=== PATIENT | male | born 1985 | race Hispanic/Latino ===

== ENCOUNTER 2017-12-04 20:20 | Emergency (ER) | payer SELFPAY ==
--- NOTE | 2017-12-04 21:13 | RAD REPORT ---
EXAM DESCRIPTION: CT - Stone Protocol - 12/04/2017 8:54 pm CLINICAL HISTORY: Abdominal pain, hematuria COMPARISON: None. TECHNIQUE: Axial 5 mm thick images were obtained without oral or IV contrast. The [id number] span s the entirety of the system including uppermost abdomen and lung bases. All CT scans are performed using dose optimization technique as appropriate and may include automated exposure control or mA/KV adjustment according to patient size. FINDINGS: No hydronephrosis is present. There is a very minimal hyperdensity in the distal left uret er several cm from the UVJ. This is a potential 1- 2 mm calcification. No other evidence for obstruct ing or nonobstructing calculi. No suspicious renal masses. Isodense masses and pyelonephritis are not excluded on a stone protocol CT scan. Partially filled urinary bladder shows no suspicious findings. Liver shows diffuse fatty infiltration with no focal liver lesion. Liver size is prominent. No spleno megaly. Accessory splenic nodules present. No acute pancreatic process. No gallbladder or biliary diaz e abnormality identified. No significant adrenal finding. No suspicious bowel findings. No appendicitis or other acute GI finding. No hernia, mass or bulky lymphadenopathy noted. No free air, free fluid or inflammatory stranding. No significant bony abnormality. IMPRESSION: No hydronephrosis present. Patient has a faint hyperdensity in the distal left ureter a few cm from the UVJ. This is potentially a 1-2 mm stone. Correlation is the within the left flank cari n symptoms. No other acute or significant finding. Isodense masses and pyelonephritis are not excluded on stone protocol technique. Prominent fatty infiltration within an enlarged liver. No focal liver lesion.
[2017-12-04 21:34] LABS: Urine Blood NEGATIVE (NEG); Urine Glucose NEGATIVE (NEG); Urine Protein TRACE (NEG); Urine Specific Gravity 1.025 (1.005-1.030)
[2017-12-04 21:39] LABS: Urine Bacteria NONE SEEN /HPF (NONE SEEN); Urine Culture Reflex Order NOT NEEDED; Urine RBC NONE SEEN /HPF (NONE SEEN)
[2017-12-04] MEDS ORDERED: KETOROLAC 30 MG/ML INJ ONE (21:46)
--- NOTE | 2017-12-04 22:11 | RAD REPORT ---
EXAM DESCRIPTION: US - Scrotum Testicles - 12/04/2017 10:03 pm CLINICAL HISTORY: Scrotal pain, testicular pain COMPARISON: None. FINDINGS: Bilateral testicular tissue is homogeneous. No focal testicular lesions seen. Doppler eval uation shows a normal, symmetric blood flow pattern. No epididymal enlargement or hyperemia. No herni a, mass or other extratesticular abnormality. IMPRESSION: Unremarkable scrotal ultrasound.
--- NOTE | 2017-12-04 22:16 | ER ---
Nurse's Notes [facility] Name: Kristain Razo Age: 32 yrs Sex: Male : 1985 Arrival Date: 12/04/2017 Time: 20:21 Bed 28 Private MD: Diagnosis: Kidney stone Presentation: 12/04 20:39 Presenting complaint: Patient states: lower right abd pain X2 days. pt stated he has ak1 had hematuria today. Transition of care: patient was not received from another setting of care. Onset of symptoms is unknown. Risk Assessment: Do you want to hurt yourself or someone else? Patient reports no desire to harm self or others. Initial Sepsis Screen: Does the patient meet any 2 criteria? No. Patient's initial sepsis screen is negative. Does the patient have a suspected source of infection? No. Patient's initial sepsis screen is negative. Care prior to arrival: None. 20:39 Method Of Arrival: Ambulatory ak1 20:39 Acuity: KWAKU 3 ak1 Triage Assessment: 20:40 General: Appears uncomfortable, Behavior is calm, cooperative. Pain: Complains of pain ak1 in right lower quadrant. Historical: - Allergies: 20:40 No Known Allergies; ak1 - Home Meds: 20:40 None [Active]; ak1 - PMHx: 20:40 None; ak1 - PSHx: 20:40 Hernia repair; ak1 - Immunization history:: Adult Immunizations unknown. - Social history:: Smoking status: Patient/guardian denies using tobacco. - Ebola Screening: : No symptoms or risks identified at this time. Screenin:41 Abuse screen: Denies threats or abuse. Denies injuries from another. Nutritional ak1 screening: No deficits noted. Tuberculosis screening: No symptoms or risk factors identified. Fall Risk None identified. Assessment: 22:31 General: Appears in no apparent distress. uncomfortable, Behavior is calm, cooperative, aj appropriate for age. Pain: Complains of pain in right lower quadrant. Neuro: Level of Consciousness is awake, alert, obeys commands, Oriented to person, place, time, situation. Respiratory: Airway is patent Respiratory effort is even, unlabored, Respiratory pattern is regular, symmetrical. GI: Abdomen is flat, Bowel sounds present X 4 quads. Abd is soft and non tender X 4 quads. Derm: Skin is intact, is healthy with good turgor, Skin is pink, warm \T\ dry. normal. Vital Signs: 20:40 BP 144 / 93; Pulse 62; Resp 18; Temp 98.3; Pulse Ox 99% on R/A; Weight 122.47 kg (R); ak1 Height 6 ft. 4 in. (193.04 cm) (R); Pain 7/10; 22:49 BP 132 / 92; Pulse 54; Resp 19; Pulse Ox 95% on R/A; aj 20:40 Body Mass Index 32.87 (122.47 kg, 193.04 cm) ak1 ED Course: 20:21 Patient arrived in ED. as 20:40 Triage completed. ak1 20:40 Arm band placed on Patient placed in an exam room, on a stretcher, Patient notified of ak1 wait time. 20:43 Chioma Bolivar [facility]-C [facility]. snw 20:43 Homer Bauer MD is Attending Physician. snw 20:[address] [facility] 20:47 Ina Del Real, RN is Primary Nurse. aj 20:55 CT Stone Protocol In Process Unspecified. EDMS 20:58 CT completed. Patient tolerated procedure well. Patient moved back from CT. eh 21:43 Patient taken to ultrasound. sil 22:03 US Scrotum Testicles In Process Unspecified. EDMS 22:48 No provider procedures requiring assistance completed. Patient did not have IV access aj during this emergency room visit. 22:49 Patient has correct armband on for positive identification. aj Administered Medications: 21:42 Drug: TORadol 60 mg Route: IM; Site: left gluteus; aj 22:31 Follow up: Response: No change in condition aj 22:30 Drug: fentaNYL (PF) 50 mcg Route: IM; Site: left deltoid; aj 22:48 Follow up: Response: Pain is decreased aj Outcome: 22:16 Discharge ordered by . snw 22:48 Discharged to home ambulatory. aj 22:48 Condition: good 22:48 Discharge instructions given to patient, Instructed on discharge instructions, follow up and referral plans. medication usage, Demonstrated understanding of instructions, follow-up care, medications, Prescriptions given X 1. 22:49 Patient left the ED. aj Signatures: Dispatcher [employer] EDMA Ina Del Real, RN RN Chioma Mayorga, AUTOMATIC FOLDER SEAMER-C AUTOMATIC FOLDER SEAMER-Csnw Tavo Mobley Amelia as Woodley, Cecelia cw1 Tali Peck, MEGHNA RN ak1 Fidencio Santoro jd
--- NOTE | 2017-12-04 22:17 | EDPHYS ---
Physician Documentation [facility] Name: Kristian Razo Age: 32 yrs Sex: Male : 1985 Arrival Date: 12/04/2017 Time: 20:21 Bed 28 Private MD: ED Physician Homer Bauer HPI: 12/04 22:38 This 32 yrs old Male presents to ER via Ambulatory with complaints of snw Abdominal Pain. 22:38 The patient presents with abdominal pain right lower quadrant. Onset: The snw symptoms/episode began/occurred suddenly, this morning. The symptoms radiate to the right flank, and then down from flank to lower right quad with pain radiating to testicles. Associated signs and symptoms: Pertinent positives: hematuria. The symptoms are described as sharp. Severity of pain: At its worst the pain was severe in the emergency department the pain is unchanged. The patient has not experienced similar symptoms in the past. It is unknown whether or not the patient has recently seen a physician. no fever. Historical: - Allergies: 20:40 No Known Allergies; ak1 - Home Meds: 20:40 None [Active]; ak1 - PMHx: 20:40 None; ak1 - PSHx: 20:40 Hernia repair; ak1 - Immunization history:: Adult Immunizations unknown. - Social history:: Smoking status: Patient/guardian denies using tobacco. - Ebola Screening: : No symptoms or risks identified at this time. ROS: 22:36 Constitutional: Negative for fever, chills, and weight loss, Eyes: Negative for injury, snw pain, redness, and discharge, ENT: Negative for injury, pain, and discharge, Neck: Negative for injury, pain, and swelling, Cardiovascular: Negative for chest pain, palpitations, and edema, Respiratory: Negative for shortness of breath, cough, wheezing, and pleuritic chest pain, Back: Negative for injury and pain, : Negative for injury, bleeding, discharge, and swelling, MS/Extremity: Negative for injury and deformity, Skin: Negative for injury, rash, and discoloration, Neuro: Negative for headache, weakness, numbness, tingling, and seizure. 22:36 Abdomen/GI: Positive for abdominal pain. Exam: 22:36 Constitutional: This is a well developed, well nourished patient who is awake, alert, snw and in no acute distress. Head/Face: Normocephalic, atraumatic. Eyes: Pupils equal round and reactive to light, extra-ocular motions intact. Lids and lashes normal. Conjunctiva and sclera are non-icteric and not injected. Cornea within normal limits. Periorbital areas with no swelling, redness, or edema. ENT: Nares patent. No nasal discharge, no septal abnormalities noted. Tympanic membranes are normal and external auditory canals are clear. Oropharynx with no redness, swelling, or masses, exudates, or evidence of obstruction, uvula midline. Mucous membranes moist. Neck: Trachea midline, no thyromegaly or masses palpated, and no cervical lymphadenopathy. Supple, full range of motion without nuchal rigidity, or vertebral point tenderness. No Meningismus. Chest/axilla: Normal chest wall appearance and motion. Nontender with no deformity. No lesions are appreciated. Cardiovascular: Regular rate and rhythm with a normal S1 and S2. No gallops, murmurs, or rubs. Normal PMI, no JVD. No pulse deficits. Respiratory: Lungs have equal breath sounds bilaterally, clear to auscultation and percussion. No rales, rhonchi or wheezes noted. No increased work of breathing, no retractions or nasal flaring. Back: No spinal tenderness. No costovertebral tenderness. Full range of motion. Skin: Warm, dry with normal turgor. Normal color with no rashes, no lesions, and no evidence of cellulitis. MS/ Extremity: Pulses equal, no cyanosis. Neurovascular intact. Full, normal range of motion. Neuro: Awake and alert, GCS 15, oriented to person, place, time, and situation. Cranial nerves II-XII grossly intact. Motor strength 5/5 in all extremities. Sensory grossly intact. Cerebellar exam normal. Normal gait. Psych: Awake, alert, with orientation to person, place and time. Behavior, mood, and affect are within normal limits. 22:36 Abdomen/GI: Inspection: abdomen appears normal, Bowel sounds: normal, Palpation: moderate abdominal tenderness, in the right lower quadrant. Vital Signs: 20:40 BP 144 / 93; Pulse 62; Resp 18; Temp 98.3; Pulse Ox 99% on R/A; Weight 122.47 kg (R); ak1 Height 6 ft. 4 in. (193.04 cm) (R); Pain 7/10; 22:49 BP 132 / 92; Pulse 54; Resp 19; Pulse Ox 95% on R/A; aj 20:40 Body Mass Index 32.87 (122.47 kg, 193.04 cm) ak1 MDM: 20:43 Patient medically screened. snw 22:37 Data reviewed: vital signs, nurses notes. Data interpreted: Pulse oximetry: on room air snw is 99 %. Interpretation: normal. Counseling: I had a detailed discussion with the patient and/or guardian regarding: the historical points, exam findings, and any diagnostic results supporting the discharge/admit diagnosis, the presence of at least one elevated blood pressure reading (>120/80) during this emergency department visit, lab results, radiology results, the need for outpatient follow up, to return to the emergency department if symptoms worsen or persist or if there are any questions or concerns that arise at home. Special discussion: Based on the patient's Hx, exam, and Dx evaluation, there is no indication for emergent surgery or inpatient Tx. It is understood by the patient/guardian that if the Sx's persist or worsen they need to return immediately for re-evaluation. I have referred the patient to see his PCP for further evaluation of high blood pressure. Based on the history and exam findings, there is no indication for further emergent testing or inpatient evaluation. 12/04 20:44 Order name: Urine Culture snw 12/04 20:44 Order name: Urine Microscopic Only; Complete Time: 21:47 snw 12/04 20:44 Order name: CT Stone Protocol; Complete Time: 21:28 snw 12/04 21:15 Order name: Urine Dipstick--Ancillary (enter results); Complete Time: 21:47 ms 12/04 21:27 Order name: US Scrotum Testicles; Complete Time: 22:13 aj 12/04 20:44 Order name: Urine Dipstick-Ancillary (obtain specimen); Complete Time: 21:35 snw Administered Medications: 21:42 Drug: TORadol 60 mg Route: IM; Site: left gluteus; aj 22:31 Follow up: Response: No change in condition aj 22:30 Drug: fentaNYL (PF) 50 mcg Route: IM; Site: left deltoid; aj 22:48 Follow up: Response: Pain is decreased aj Disposition: 10/29/18 22:16 Discharged to Home. Impression: Kidney stone. - Condition is Stable. - Discharge Instructions: Hypertension, Kidney Stones, Dietary Guidelines to Help Prevent Kidney Stones. - Prescriptions for Diclofenac Sodium 75 mg Oral Tablet Sustained Release - take 1 tablet by ORAL route 2 times per day; 30 tablet. - Work release form, Medication Reconciliation Form, Thank You Letter, Antibiotic Education, Prescription Opioid Use form. - Follow up: Private Physician; When: 2 - 3 days; Reason: Recheck today's complaints, Continuance of care, Re-evaluation by your physician. Follow up: Emergency Department; When: As needed; Reason: Worsening of condition. Signatures: Dispatcher [employer] EDIna Peña, RN RN Chioma Mayorga, SAILAJA-C PULMONARY SPECIALIST-Tali Massey RN RN ak1 Corrections: (The following items were deleted from the chart) 22:49 22:16 12/04/2017 22:16 Discharged to Home. Impression: Kidney stone. Condition is aj Stable. Forms are Medication Reconciliation Form, Thank You Letter, Antibiotic Education, Prescription Opioid Use. Follow up: Private Physician; When: 2 - 3 days; Reason: Recheck today's complaints, Continuance of care, Re-evaluation by your physician. Follow up: Emergency Department; When: As needed; Reason: Worsening of condition. snw
[2017-12-04] MEDS ORDERED: FENTANYL CITR 100 MCG/2 ML ONE (22:33)
== END 2017-12-04 22:49 | disposition home or self-care (01) ==
LOC: ER 20:20
DX: N20.0 Calculus of kidney (principal)
CPT/HCPCS: 74176; 76377; 76870; 81003; 81015; 87086; 87088; 96372; 99284; J3010

== ENCOUNTER 2017-12-24 20:55 | Emergency (ER) | payer SELFPAY ==
--- NOTE | 2017-12-24 22:02 | RAD REPORT ---
EXAM DESCRIPTION: RAD - Hand Right 3 View - 12/24/2017 9:54 pm CLINICAL HISTORY: PAIN COMPARISON: No comparisons FINDINGS: Deformity of the fifth metacarpal is noted compatible with prior fracture. Soft tissue swe lling is seen along the dorsum of the hand. No acute fracture or dislocation is seen.
--- NOTE | 2017-12-24 22:26 | ER ---
Nurse's Notes [facility] Name: Kristian Razo Age: 32 yrs Sex: Male : 1985 Arrival Date: 12/24/2017 Time: 20:58 Bed 17 [facility] MD: Diagnosis: Contusion of right hand Presentation: 12/24 21:04 Presenting complaint: Patient states: one Monday I smashed my right hand between some la1 plywood, hand swollen. Transition of care: patient was not received from another setting of care. Onset of symptoms was December 24, 2017. Risk Assessment: Do you want to hurt yourself or someone else? Patient reports no desire to harm self or others. Initial Sepsis Screen: Does the patient meet any 2 criteria? No. Patient's initial sepsis screen is negative. Does the patient have a suspected source of infection? No. Patient's initial sepsis screen is negative. Care prior to arrival: None. 21:04 Method Of Arrival: Ambulatory la1 21:04 Acuity: KWAKU 4 la1 Triage Assessment: 21:16 Injury Description: pt reported crush injury between 2 pieces of plywood. jd3 Historical: - Allergies: 21:04 No Known Allergies; la1 - PMHx: 21:04 None; la1 - Immunization history:: Adult Immunizations up to date. - Social history:: Smoking status: Patient/guardian denies using tobacco. - Ebola Screening: : No symptoms or risks identified at this time. - Family history:: not pertinent. Screenin:16 Abuse screen: Denies threats or abuse. Nutritional screening: No deficits noted. jd3 Tuberculosis screening: No symptoms or risk factors identified. Fall Risk Ambulatory Aid- None/Bed Rest/Nurse Assist (0 pts). Gait- Normal/Bed Rest/Wheelchair (0 pts) Mental Status- Oriented to own ability (0 pts). Total Pruitt Fall Scale indicates No Risk (0-24 pts). Assessment: 21:14 General: Appears in no apparent distress. uncomfortable, Behavior is calm, cooperative, jd3 appropriate for age. Pain: Complains of pain in right hand Quality of pain is described as aching, tender. Neuro: Level of Consciousness is awake, alert, obeys commands, Oriented to person, place, time, situation. Cardiovascular: Capillary refill < 3 seconds Patient's skin is warm and dry. Respiratory: Airway is patent Respiratory effort is even, unlabored, Respiratory pattern is regular, symmetrical. GI: No signs and/or symptoms were reported involving the gastrointestinal system. : No signs and/or symptoms were reported regarding the genitourinary system. EENT: No signs and/or symptoms were reported regarding the EENT system. Derm: Skin is intact, Skin is dry, Skin is normal, Skin temperature is warm. Musculoskeletal: Circulation, motion, and sensation intact. Range of motion: limited in right hand. 21:56 Reassessment: Patient appears in no apparent distress at this time. No changes from jd3 previously documented assessment. Patient and/or family updated on plan of care and expected duration. Pain level reassessed. Patient is alert, oriented x 3, equal unlabored respirations, skin warm/dry/pink. awaiting results of X-ray. 22:45 Reassessment: Patient appears in no apparent distress at this time. No changes from jd3 previously documented assessment. Patient and/or family updated on plan of care and expected duration. Pain level reassessed. Patient is alert, oriented x 3, equal unlabored respirations, skin warm/dry/pink. Vital Signs: 21:05 BP 151 / 83; Pulse 78; Resp 16; Temp 97.5; Pulse Ox 98% on R/A; Weight 117.93 kg; la1 Height 6 ft. 4 in. (193.04 cm); 22:46 Pulse 75; Resp 15 S; Pulse Ox 98% on R/A; jd3 21:05 Body Mass Index 31.65 (117.93 kg, 193.04 cm) la1 ED Course: 20:58 Patient arrived in ED. al2 21:04 Triage completed. la1 21:04 Arm band placed on left wrist. la1 21:05 Kylee Muhammad FNP-C [facility] kb 21:05 Trav Santiago MD is Attending Physician. kb 21:06 Juan Carlos Hale RN is Primary Nurse. jd3 21:16 Patient has correct armband on for positive identification. Bed in low position. Call jd3 light in reach. Side rails up X 1. Adult w/ patient. 21:53 X-ray completed. Portable x-ray completed in exam room. Patient tolerated procedure ka well. 21:54 Hand Right 3 View XRAY In Process Unspecified. EDMS 22:22 Nemesio Green MD is Referral Physician. [facility] 22:32 PHCP role handed off by Kylee Muhammad FNP-C [facility] 22:32 Chioma Bolivar FNP-C is PHCP. snw 22:45 No provider procedures requiring assistance completed. Patient did not have IV access jd3 during this emergency room visit. Administered Medications: 22:42 Drug: Motrin 600 mg Route: PO; jd3 22:44 Follow up: Response: No adverse reaction jd3 Outcome: 22:25 Discharge ordered by . [facility] 22:45 Discharged to home ambulatory, with family. jd3 22:45 Condition: stable 22:45 Discharge instructions given to patient, family, Instructed on discharge instructions, follow up and referral plans. medication usage, Demonstrated understanding of instructions, follow-up care, medications, Prescriptions given X 2. 22:46 Patient left the ED. jd3 Signatures: Dispatcher [employer] EDMO Kylee Muhammad FNP-C FNP-Trav Ignacio MD MD cha Therrien, Shelly, FNP-C FNP-Thomas Green, RN RN la1 Kelly Parker Jonathon, RN RN jd3 Keren Aponte
--- NOTE | 2017-12-24 22:26 | EDPHYS ---
Physician Documentation [facility] Name: Kristian Razo Age: 32 yrs Sex: Male : 1985 Arrival Date: 12/24/2017 Time: 20:58 Bed 17 Private MD: ED Physician Trav Santiago HPI: 12/24 21:08 This 32 yrs old Male presents to ER via Ambulatory with complaints of Hand kb Injury. 21:08 The patient or guardian reports decreased range of motion, injury, pain, swelling, kb tenderness. The complaints affect the dorsum of right hand. Context: The problem was sustained at work, resulted from a crush injury, by a heavy object. Onset: The symptoms/episode began/occurred 6 day(s) ago. Modifying factors: The symptoms are alleviated by nothing, the symptoms are aggravated by movement. Associated signs and symptoms: The patient has no apparent associated signs or symptoms. Severity of symptoms: At their worst the symptoms were moderate, in the emergency department the symptoms are unchanged. The patient has not experienced similar symptoms in the past. The patient has not recently seen a physician. Historical: - Allergies: 21:04 No Known Allergies; la1 - PMHx: 21:04 None; la1 - Immunization history:: Adult Immunizations up to date. - Social history:: Smoking status: Patient/guardian denies using tobacco. - Ebola Screening: : No symptoms or risks identified at this time. - Family history:: not pertinent. ROS: 21:09 Constitutional: Negative for fever, chills, and weight loss, Cardiovascular: Negative kb for chest pain, palpitations, and edema, Respiratory: Negative for shortness of breath, cough, wheezing, and pleuritic chest pain, Abdomen/GI: Negative for abdominal pain, nausea, vomiting, diarrhea, and constipation, Skin: Negative for injury, rash, and discoloration, Neuro: Negative for headache, weakness, numbness, tingling, and seizure. 21:09 MS/extremity: Positive for injury or acute deformity, decreased range of motion, pain, swelling, tenderness, of the dorsum of right hand. Exam: 21:09 Constitutional: This is a well developed, well nourished patient who is awake, alert, kb and in no acute distress. Head/Face: Normocephalic, atraumatic. Chest/axilla: Normal chest wall appearance and motion. Nontender with no deformity. No lesions are appreciated. Cardiovascular: Regular rate and rhythm with a normal S1 and S2. No gallops, murmurs, or rubs. Normal PMI, no JVD. No pulse deficits. Respiratory: Lungs have equal breath sounds bilaterally, clear to auscultation and percussion. No rales, rhonchi or wheezes noted. No increased work of breathing, no retractions or nasal flaring. Abdomen/GI: Soft, non-tender, with normal bowel sounds. No distension or tympany. No guarding or rebound. No evidence of tenderness throughout. Skin: Warm, dry with normal turgor. Normal color with no rashes, no lesions, and no evidence of cellulitis. Neuro: Awake and alert, GCS 15, oriented to person, place, time, and situation. Cranial nerves II-XII grossly intact. Motor strength 5/5 in all extremities. Sensory grossly intact. Cerebellar exam normal. Normal gait. 21:09 Musculoskeletal/extremity: Extremities: grossly normal except: noted in the dorsum of right hand: decreased ROM, pain, swelling, tenderness, ROM: limited active range of motion due to pain, in the right hand, Circulation is intact in all extremities. Sensation intact. Vital Signs: 21:05 BP 151 / 83; Pulse 78; Resp 16; Temp 97.5; Pulse Ox 98% on R/A; Weight 117.93 kg; la1 Height 6 ft. 4 in. (193.04 cm); 22:46 Pulse 75; Resp 15 S; Pulse Ox 98% on R/A; jd3 21:05 Body Mass Index 31.65 (117.93 kg, 193.04 cm) la1 MDM: 21:05 Patient medically screened. kb 21:10 Data reviewed: vital signs, nurses notes. Data interpreted: Pulse oximetry: on room air kb is 98 %. Interpretation: normal. 12/24 21:05 Order name: Hand Right 3 View XRAY; Complete Time: 22:32 kb 12/24 22:25 Order name: Splint; Complete Time: 22:42 amanda Administered Medications: 22:42 Drug: Motrin 600 mg Route: PO; jd3 22:44 Follow up: Response: No adverse reaction jd3 Disposition: 22:26 Co-signature as Attending Physician, Trav Santiago MD I agree with the assessment and amanda plan of care. Disposition: 12/24/17 22:25 Discharged to Home. Impression: Contusion of right hand. - Condition is Stable. - Discharge Instructions: Hand Contusion, [id number], Contusion, [id number], Hypertension. - Prescriptions for Ibuprofen 600 mg Oral Tablet - take 1 tablet by ORAL route every 8 hours As needed take with food; 21 tablet. Tylenol- Codeine #3 300-30 mg Oral Tablet - take 2 tablets by ORAL route every 6 hours As needed; 20 tablet. - Medication Reconciliation Form, Thank You Letter, Antibiotic Education, Prescription Opioid Use, Work release form form. - Follow up: Private Physician; When: 2 - 3 days; Reason: Recheck today's complaints, Continuance of care, Re-evaluation by your physician. Follow up: Nemesio Green MD; When: 2 - 3 days; Reason: Recheck today's complaints, Re-evaluation by your physician. - Problem is new. - Symptoms have improved. Signatures: Dispatcher [employer] EDKylee Metcalf, MANAGER OF ORGANIZATIONAL DEVELOPMENT-C MANAGER OF ORGANIZATIONAL DEVELOPMENT-CkTrav Glynn MD MD cha Therrien, Shelly, MANAGER OF ORGANIZATIONAL DEVELOPMENT-C MANAGER OF ORGANIZATIONAL DEVELOPMENT-Thomas Green RN RN la1 Juan Carlos Hale RN RN jd3 Corrections: (The following items were deleted from the chart) 21:10 21:08 The complaints affect the dorsum of left hand, kb kb 22:46 22:25 12/24/2017 22:25 Discharged to Home. Impression: Contusion of right hand. jd3 Condition is Stable. Forms are Medication Reconciliation Form, Thank You Letter, Antibiotic Education, Prescription Opioid Use. Follow up: Private Physician; When: 2 - 3 days; Reason: Recheck today's complaints, Continuance of care, Re-evaluation by your physician. Follow up: Nemesio Green; When: 2 - 3 days; Reason: Recheck today's complaints, Re-evaluation by your physician. Problem is new. Symptoms have improved. amanda
[2017-12-24] MEDS ORDERED: IBUPROFEN 400 MG TAB ONE (22:44)
[2017-12-24] MEDS ORDERED: IBUPROFEN 200 MG TAB PO ONE (22:44)
== END 2017-12-24 22:46 | disposition home or self-care (01) ==
LOC: ER 20:55
DX: S60.221A Contusion of right hand, initial encounter (principal); X58.XXXA Exposure to other specified factors, initial encounter; Y99.0 Civilian activity done for income or pay
CPT/HCPCS: 99283